=== PATIENT | female | born 2000 | race Two or more races ===

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

== ENCOUNTER 2021-09-20 15:02 | Emergency (ER) | payer SELFPAY ==
[~2021-09-20] VITALS: Ht 167.6 cm; Wt 78.0 kg
[2021-09-20 15:11] VITALS: BP 140/89
[2021-09-20] MEDS ORDERED: ACETAMINOPHEN 500MG TABLET PO ONE (15:30)
== END 2021-09-20 18:20 | disposition left against medical advice (07) ==
LOC: ER 15:02
DX: M54.50 Low back pain, unspecified (principal); J45.909 Unspecified asthma, uncomplicated
CPT/HCPCS: 99283